=== PATIENT | male | born 1965 | race Caucasian/White ===

== ENCOUNTER 2019-11-18 11:47 | Day surgery (SDC) | payer BC, SELFPAY ==
[2019-11-17 10:08] VITALS: BMI 24.7
[2019-11-18 12:37] VITALS: BP 123/85; PULSE 64; RESP 18; TEMP 37.1; O2SAT 99; BMI 24.7
--- NOTE | 2019-11-18 12:46 | ANES.PREANES ---
Pre-Anesthetic Assessment Pre-Anesthetic Assessment: Height/Weight: Height 1.85 m Weight 85.275 kg Temp Pulse Resp BP Pulse Ox 98.7 F 64 18 123/85 99 11/18/19 12:37 11/18/19 12:37 11/18/19 12:37 11/18/19 12:37 11/18/19 12:37 Proposed Procedure: Operation Date: 11/18/19 13:30 Proposed Procedures p Inguinal Hernia Repair w/ Mesh RIGHT(Right) - Tomás Cerna MD Last intake: Intake Last Liquid Date 11/18/19 Last Liquid Time 09:00 Last Solid Date 11/17/19 Last Solid Time 19:30 Social: Social History: No alcohol and No tobacco Exam: Pre-Anes Outpt Exam: alert, oriented x 3, clear to auscultation bilaterally and regular rate & rhythm Airway: Submandibular: WNL Cervical ROM: WNL MP: 2 History/ROS: No significant history except as noted Pulmonary: Pulmonary: Asthma CV/HEM: CV/HEM: None reported : : None reported Hepatic: Hepatic: None reported GI: GI: None reported Metabolic: Metabolic: None reported Musc/skel: Musc/skel: None reported Neuropsych: Neuropsych: None reported Anesthetic Plan: ASA status: I Anesthesia: Anesthesia Evaluation and MAC Risk of > 500 ml blood loss (7ml/kg in children): No Data Anesthesia Cardiac Studies: No Data to Display
[2019-11-18] MEDS: sodium chloride 0.9% 1,000 ML 30 ML IV (12:51)
--- NOTE | 2019-11-18 13:04 | PM.HPUD ---
H&P update H&P Update: DATE OF SURGERY/PROCEDURE: 11/18/19 DATE H&P PERFORMED: 10/18/19 H&P UPDATE INFORMATION: H&P completed within last 30 days and No changes to prior documentation PLANNED PROCEDURE: Operation Date: 11/18/19 13:30 Proposed Procedures p Inguinal Hernia Repair w/ Mesh RIGHT(Right) - Tomás Cerna MD Full H&P Medications/Allergies: Current Medications: Current Medications Generic Name Dose Route Start Last Admin Trade Name Freq PRN Reason Stop Dose Admin Sodium Chloride 1,000 mls @ 30 ml s/hr 11/18/19 11:30 11/18/19 12:51 Sodium Chloride 0.9% IV 11/19/19 11:29 30 mls/hr .Q24H ESTEFANY Administration
--- NOTE | 2019-11-18 14:02 | PM.OP ---
Operative Report Date of procedure: November 18, 2019 Pre-op Diagnosis: Right inguinal hernia. Post-op Diagnosis: Right indirect inguinal hernia. Procedure Done: Repair of right inguinal hernia with mesh. Pathology: none sent Surgeon: Tomás Cerna Anesthesia: MAC Estimated blood loss (mL): 5 Complications: None. Condition: stable Disposition: same day Procedure: The patient was brought to the operating room and was placed in a supine position on the operating room table. A monitored anesthetic was induced. The right inguinal region was prepped and draped in a sterile fashion. A combination of 1% lidocaine and 0.5% bupivacaine with 1-200,000 parts epinephrine was used for local anesthesia throughout the procedure. A transverse incision was carried out above the level of the pubic tubercle. Cautery was used to divide the subcutaneous tissue down to the external oblique aponeurosis which was incised in parallel with its fibers over the inguinal canal. The spermatic cord was looped with a Jasmin drain. An indirect hernia was found at the internal ring, but appeared to only consist of some preperitoneal fat which was freed from the cord structures and excised at the internal ring. The internal ring was enlarged and the entire finger could be passed through it. A small mesh plug was placed into the internal ring and was held in place with a suture of 0 Prolene that was used to connect the conjoined area medially to the reflecting edge of Poupart's ligament laterally. The onlay patch was anchored at the tubercle with a suture of 0 Prolene and was laid along the inguinal canal floor, allowing the cord structures to pass through the precut hole in the mesh. The two wings of mesh were sewn to each other above the level of the internal ring with a suture of 0 Prolene. The external oblique aponeurosis was closed over the top of the cord using a running suture of 3-0 Vicryl. The wound was irrigated with saline. The subcutaneous tissue was brought together with a simple suture of 3-0 Vicryl and the skin was approximated using a running subcuticular suture of 3-0 Vicryl. Benzoin and Steri-Strips were placed over the incision and a sterile bandage followed. The patient was taken to the recovery area in stable condition postoperatively.
[2019-11-18 14:25] VITALS: BP 104/84; PULSE 79; RESP 18; TEMP 36.6; O2SAT 96
[2019-11-18 14:38] VITALS: BP 132/71; PULSE 56; RESP 18; TEMP 36.6; O2SAT 97
== END 2019-11-18 15:10 | disposition home or self-care (01) ==
PROVIDERS: Family Provider Family Medicine; PCP Family Medicine; Visit Provider Surgery
PROC: (CPT 49505; principal; 2019-11-18 13:30)
DX: K40.90 Unilateral inguinal hernia, without obstruction or gangrene, not specified as recurrent (principal); J45.909 Unspecified asthma, uncomplicated
CPT/HCPCS: 49505; 12345; J0690; J2001; J2250; J2704; J3010; J3490; J7030

== ENCOUNTER 2021-03-18 13:38 | Emergency (ER) | payer BC, SELFPAY ==
[2021-03-18 14:46] VITALS: BP 117/68; PULSE 86; RESP 15; TEMP 36.3; O2SAT 97; BMI 24.6
--- NOTE | 2021-03-18 14:55 | XRR_ITS ---
PROCEDURE INFORMATION: Exam: XR Right Humerus Exam date and time: 03/18/2021 2:56 PM Age: 55 years old Clinical indication: Injury or trauma; Fall; Blunt trauma (contusions or hematomas); Arm, upper; Right; Prior surgery TECHNIQUE: Imaging protocol: XR Right humerus. Views: 2 or more views. COMPARISON: No relevant prior studies available. FINDINGS: Bones/joints: There are oblique fractures in the mid humerus proximal to the metallic plate and screw fixation device which have an acute appearance. ORIF proximal radius partially visualized. Soft tissues: Edema and/or hematoma is present in the soft tissues adjacent to the fracture site. XR/[place] [id number] IMPRESSION: There are oblique fractures in the mid humerus proximal to the metallic plate and screw fixation device which have an acute appearance.
--- NOTE | 2021-03-18 15:06 | W.ED.TRAUMA ---
HPI - Trauma General: Chief Complaint: Trauma Stated Complaint: FALL/RUE INJURY Time Seen by Provider: 03/18/21 14:51 Source: patient Limitations: no limitations History of Present Illness: HPI narrative: Patient fell landing on his right arm. Has deformity and pain of the right humerus. No other injury. Denies hitting his head or denies any LOC or neck or back pain. Location - Extremities: Right: arm Associated symptoms: Denies abdominal pain, back pain, chest pain or headache(s) Review of Systems General: Reports: 10 or more systems reviewed and unremarkable except in HPI and below Card: Denies: chest pain Resp: Denies: dyspnea GI: Denies: abdominal pain : Denies: flank pain Musc: Reports: extremity swelling (Right humerus pain and swelling, neurovascularly intact distal); Denies: neck pain or back pain Neuro: Denies: headache(s) Course Vital Signs: Vital signs: Vital Signs Temperature 97.4 F L 03/18/21 14:46 Pulse Rate 86 03/18/21 14:46 Respiratory Rate 15 03/18/21 14:46 Blood Pressure 117/68 03/18/21 14:46 Pulse Oximetry 97 03/18/21 14:46 MDM - Trauma MDM Narrative: Medical decision making narrative: Patient with right mid humerus fracture over old hardware. Discussed with Dr. Antoine, orthopedics, will splint and have patient follow-up next week. Discharge Plan Discharge Patient Disposition: Home Clinical Impression: Closed right humeral fracture Qualifiers: Encounter type: initial encounter Humerus Location: shaft Fracture morphology: transverse Fracture alignment: nondisplaced Qualified Code(s): S42.324A - Nondisplaced transverse fracture of shaft of humerus, right arm, initial encounter for closed fracture Condition: Stable Prescriptions: New hydrocodone-acetaminophen 5-325 mg tablet 1 tab PO Q6H Qty: 20 RF: 0 No Action multivitamin Tablet 1 tab PO DAILY RF: 0 Vitamin C 2 tab PO DAILY RF: 0 albuterol sulfate [ProAir HFA] 90 mcg/actuation HFA aerosol inhaler 2 inh INHALATION QID PRN (Reason: Shortness Of Breath) RF: 0 Qvar RediHaler 40 mcg/actuation HFA aerosol breath activated 1 inh INHALATION BID PRN (Reason: UNKNOWN) RF: 0 Discharge Orders: Discharge ED (Routine); Ordered 03/18/21 Ordered By: Srinivasan Krishnamurthy Referrals: Adore Antoine MD [Physician] - 1-3 days Stefano Parada DO [Primary Care Provider] - Patient Instructions: Opioid Safety Coding Level of Care Code ED Cigarette Packer for Rafi Santana
[2021-03-18] MEDS: HYDROcodone-acetaminophen 5-325 mg Tablet 2 TAB PO (15:53)
[2021-03-18 17:20] VITALS: BP 100/49; PULSE 61; RESP 20; O2SAT 98
== END 2021-03-18 17:13 | disposition home or self-care (01) ==
PROVIDERS: Emergency Provider Emergency Medicine; PCP Family Medicine
DX: S42.324A Nondisplaced transverse fracture of shaft of humerus, right arm, initial encounter for closed fracture (principal); W19.XXXA Unspecified fall, initial encounter
CPT/HCPCS: 29125; 73060; 99283

== ENCOUNTER → 2023-05-09 11:47 | Outpatient (BNVA) | payer BC, SELFPAY | PROVIDERS: PCP Family Medicine; Visit Provider Family Medicine | DX: J45.20 Mild intermittent asthma, uncomplicated (principal) | CPT/HCPCS: 80053; 80061; 85025 ==

== ENCOUNTER → 2023-07-11 09:32 | Outpatient (BNVA) | payer BC, SELFPAY | PROVIDERS: PCP Clinical Nurse Specialist Adult Health; Visit Provider Clinical Nurse Specialist Adult Health | DX: R73.01 Impaired fasting glucose (principal); R17 Unspecified jaundice; N40.0 Benign prostatic hyperplasia without lower urinary tract symptoms | CPT/HCPCS: 80053 ==

== ENCOUNTER 2025-04-20 13:41 | Outpatient (CLI) | payer SELFPAY ==
--- NOTE | 2025-04-20 13:45 | XR_ITS ---
WS: [id number] XR lumbar spine 2-3V* [id number] REASON FOR EXAM: acute right sciatic neuralgia FINDINGS: Mild to moderate rotatory levoscoliosis. Relatively normal lumbar lordosis. Minimal chronic endplate deformities of the lumbar vertebrae L1-L5. Mild narrowing of the L5-S1 disc space. The disc spaces are otherwise intact and relatively well preserved. Mild endplate sclerosis and osteophytosis of the lumbar vertebrae L2-L5. No spondylolysis. No significant spondylolisthesis. Mild degenerative arthropathy in the facet joints L4-S1. XR/XR lumbar spine 2-3V* [id number] IMPRESSION: Mild lumbar degenerative spondylosis.
== END 2025-04-20 13:42 | disposition home or self-care (01) ==
LOC: RAD 13:42
PROVIDERS: PCP Family Medicine; Visit Provider Family Medicine
DX: M51.16 Intervertebral disc disorders with radiculopathy, lumbar region (principal); M47.26 Other spondylosis with radiculopathy, lumbar region
CPT/HCPCS: 72100